=== PATIENT | male | born 1955 | race Caucasian/White ===

== ENCOUNTER → 2019-12-27 | Outpatient (CLI) | payer MEDICARE ==
[~2019-12-27] MED LIST: HYDROCORTISONE30 G3 TP
[2019-12-27 16:34] LABS: COLLECTION METHOD CATHETER
[2019-12-27 16:46] LABS: BUDDING YEAST Present /hpf; PH 6 (5-8); SQUAMOUS EPITHELIAL 0-2 /hpf; URINE APPEARANCE Cloudy; URINE BACTERIA Rare /hpf; URINE BILIRUBIN Negative (NEGATIVE); URINE BLOOD 1+ (NEGATIVE); URINE COLOR Yellow; URINE GLUCOSE Negative (NEGATIVE); URINE KETONE Negative (NEGATIVE); URINE LEUKOCYTE ESTERASE 2+ (NEGATIVE); URINE NITRATE Positive (NEGATIVE); URINE PROTEIN(semi-quant) Negative (NEGATIVE); URINE UROBILINOGEN Negative (NEGATIVE)
== END ==
LOC: ZCOL.LAB 16:23
PROVIDERS: Family Medicine
DX: Z01.89 Encounter for other specified special examinations (principal)

== ENCOUNTER → 2020-01-09 | Outpatient (CLI) | payer MEDICARE ==
[2020-01-09 19:12] LABS: MUCOUS Present /lpf; PH 5 (5-8); SQUAMOUS EPITHELIAL None Seen /hpf; URINE APPEARANCE Turbid; URINE BACTERIA Moderate /hpf; URINE BILIRUBIN Negative (NEGATIVE); URINE BLOOD 3+ (NEGATIVE); URINE COLOR Amber; URINE GLUCOSE Negative (NEGATIVE); URINE KETONE Trace (NEGATIVE); URINE LEUKOCYTE ESTERASE 2+ (NEGATIVE); URINE NITRATE Negative (NEGATIVE); URINE PROTEIN(semi-quant) 2+ (NEGATIVE); URINE RBC >50 /hpf; URINE UROBILINOGEN Negative (NEGATIVE); URINE WBC >50 /hpf
[2020-01-09 19:38] LABS: COLLECTION METHOD CATHETER
== END ==
LOC: ZLAB.STJ 16:53
PROVIDERS: Family Medicine
DX: N39.0 Urinary tract infection, site not specified (principal)

== ENCOUNTER → 2020-01-28 | Outpatient (CLI) | payer MEDICARE ==
[2020-01-28 19:14] LABS: COLLECTION METHOD CLEAN CATCH
[2020-01-28 20:37] LABS: AMORPHOUS CRYSTAL Present /uL; MUCOUS Present /lpf; PH 6 (5-8); SQUAMOUS EPITHELIAL 0-2 /hpf; URINE APPEARANCE Cloudy; URINE BACTERIA Moderate /hpf; URINE BILIRUBIN Negative (NEGATIVE); URINE BLOOD Negative (NEGATIVE); URINE COLOR Yellow; URINE GLUCOSE Negative (NEGATIVE); URINE KETONE Negative (NEGATIVE); URINE LEUKOCYTE ESTERASE 3+ (NEGATIVE); URINE NITRATE Positive (NEGATIVE); URINE PROTEIN(semi-quant) Negative (NEGATIVE); URINE UROBILINOGEN Negative (NEGATIVE); URINE WBC 20-50 /hpf
== END ==
LOC: ZCOL.LAB 13:59
PROVIDERS: Family Medicine
DX: N39.0 Urinary tract infection, site not specified (principal)

== ENCOUNTER → 2020-02-03 | Outpatient (CLI) | payer MEDICARE ==
[2020-02-03 14:15] LABS: COLLECTION METHOD CATHETER
[2020-02-03 14:22] LABS: MUCOUS Present /lpf; PH 5 (5-8); SQUAMOUS EPITHELIAL None Seen /hpf; URINE APPEARANCE Hazy; URINE BACTERIA None Seen /hpf; URINE BILIRUBIN Negative (NEGATIVE); URINE BLOOD 1+ (NEGATIVE); URINE COLOR Yellow; URINE GLUCOSE Negative (NEGATIVE); URINE KETONE Negative (NEGATIVE); URINE LEUKOCYTE ESTERASE 3+ (NEGATIVE); URINE NITRATE Positive (NEGATIVE); URINE PROTEIN(semi-quant) Negative (NEGATIVE); URINE UROBILINOGEN Negative (NEGATIVE)
== END ==
LOC: ZLAB.STJ 13:49
PROVIDERS: Family Medicine
DX: N39.0 Urinary tract infection, site not specified (principal)

== ENCOUNTER → 2020-03-13 | Outpatient (CLI) | payer MEDICARE ==
[~2020-03-13] MED LIST changes: +ATROVENT INHALE14 GM IH; +BACTROBAN15 GM TOP; +DEBROX OT; +ELIQUIS 5MG PO; +GAS RELIEF 8080 MG PO; +LIORESAL 1010 MG/TAB; +MIRALAX PA17 GM/Dose PO; +ONE-A-DAY ESSE1 EACH PO; +PACERONE100 MG PO; +PRAVACHOL 40MG40 MG PO; +SENNA-LAX8.6 MG PO; +TYLENOL 325MG325 MG PO; +ULTRAM 50MG TAB50 MG PO; +VITAMIN D31000 I1 PO; +[UNRECOGNIZED DRUG - OTHER]
[2020-03-13 23:44] LABS: COLLECTION METHOD CLEAN CATCH
[2020-03-14 00:01] LABS: PH 5 (5-8); SQUAMOUS EPITHELIAL None Seen /hpf; URINE APPEARANCE Hazy; URINE BACTERIA None Seen /hpf; URINE BILIRUBIN Negative (NEGATIVE); URINE BLOOD 1+ (NEGATIVE); URINE COLOR Amber; URINE GLUCOSE Negative (NEGATIVE); URINE KETONE Negative (NEGATIVE); URINE LEUKOCYTE ESTERASE Trace (NEGATIVE); URINE NITRATE Negative (NEGATIVE); URINE PROTEIN(semi-quant) 2+ (NEGATIVE); URINE UROBILINOGEN Negative (NEGATIVE)
== END ==
LOC: ZCOL.LAB 23:02
PROVIDERS: Family Medicine
DX: N39.0 Urinary tract infection, site not specified (principal)

== ENCOUNTER 2020-03-14 15:23 | Inpatient (IN) | payer MEDICARE, OTHER ==
[~2020-03-14] VITALS: Ht 182.9 cm; Wt 98.5 kg
[2020-03-14] VITALS (131 sets, daily range): BP systolic 90–117; BP diastolic 49–74; PULSE 66–104; TEMP 98.1–100.9; O2SAT 82–99
[~2020-03-14 15:23] MED LIST changes: -ATROVENT INHALE14 GM IH; -BACTROBAN15 GM TOP; -DEBROX OT; -ELIQUIS 5MG PO; -GAS RELIEF 8080 MG PO; -LIORESAL 1010 MG/TAB; -MIRALAX PA17 GM/Dose PO; -ONE-A-DAY ESSE1 EACH PO; -PACERONE100 MG PO; -PRAVACHOL 40MG40 MG PO; -SENNA-LAX8.6 MG PO; -TYLENOL 325MG325 MG PO; -ULTRAM 50MG TAB50 MG PO; -VITAMIN D31000 I1 PO; -[UNRECOGNIZED DRUG - OTHER]
[2020-03-14 15:49] LABS: COLLECTION METHOD CATHETER
[2020-03-14 15:53] LABS: BASO % 0.2 % (0.0-2.0); GRAN # 3.9 (1.4-6.5); GRAN % 59.7 % (42.2-75.2); HEMATOCRIT 39.3 % (42.0-52.0); HEMOGLOBIN 13.3 g/dl (13.5-18.0); LYMPH # 2.3 (1.2-3.4); LYMPH % 34.9 % (20.0-51.0); MEAN CELL VOLUME 93 fl (80.0-100.0); MEAN CORPUSCULAR HEMOGLOBIN 31 pg (27.0-31.0); MEAN CORPUSCULAR HGB CONC 34 g/dl (33.0-37.0); MEAN PLATELET VOLUME 11.9 fl (7.4-10.4); MONO # 0.3 (0.1-0.6); MONO % 4.6 % (1.7-9.3); PLATELET COUNT 227 K/mm3 (130-400); RED BLOOD COUNT 4.24 M/mm3 (4.20-5.60); REDCELL DISTRIBUTION WIDTH-CV 14.5 % (11.5-14.5)
[2020-03-14 15:59] LABS: MUCOUS Present /lpf; PH 5 (5-8); SQUAMOUS EPITHELIAL None Seen /hpf; URINE APPEARANCE Cloudy; URINE BACTERIA Rare /hpf; URINE BILIRUBIN Negative (NEGATIVE); URINE BLOOD 1+ (NEGATIVE); URINE COLOR Amber; URINE GLUCOSE Negative (NEGATIVE); URINE KETONE Negative (NEGATIVE); URINE LEUKOCYTE ESTERASE 3+ (NEGATIVE); URINE NITRATE Negative (NEGATIVE); URINE PROTEIN(semi-quant) 2+ (NEGATIVE); URINE UROBILINOGEN Negative (NEGATIVE)
[2020-03-14 16:01] LABS: ALBUMIN 3.5 gm/dL (3.5-5.0); BILIRUBIN,TOTAL 0.5 mg/dL (0.0-1.0); CALCIUM 7.9 mg/dL (8.4-10.2); CREATININE, serum 1.03 (0.66-1.25); POTASSIUM 3.2 mmol/L (3.4-5.0); TOTAL PROTEIN 6.7 gm/dL (6.4-8.2)
[2020-03-14 16:11] LABS: INR 1.5 (0.8-3.0)
[2020-03-14 16:14] LABS: TROPONIN-I 0.03 ng/mL (0.000-0.035)
[2020-03-14] MEDS ORDERED: VITAMIN D31000 I1 PO (16:24)
[2020-03-14] MEDS ORDERED: SENNA-LAX8.6 MG PO (16:26)
[2020-03-14] MEDS ORDERED: MIRALAX PA17 GM/Dose PO (16:27)
[2020-03-14] MEDS ORDERED: GAS RELIEF 8080 MG PO (16:28)
[2020-03-14] MEDS ORDERED: TYLENOL 325MG325 MG PO (16:28)
[2020-03-14] MEDS ORDERED: ONE-A-DAY ESSE1 EACH PO (16:29)
[2020-03-14] MEDS ORDERED: PACERONE100 MG PO (16:30)
[2020-03-14] MEDS ORDERED: PRAVACHOL 40MG40 MG PO (16:31)
[2020-03-14] MEDS ORDERED: ELIQUIS 5MG PO (16:31)
[2020-03-14] MEDS ORDERED: LIORESAL 1010 MG/TAB (16:32)
[2020-03-14] MEDS ORDERED: ULTRAM 50MG TAB50 MG PO (16:33)
[2020-03-14] MEDS ORDERED: BACTROBAN15 GM TOP (16:45)
[2020-03-14] MEDS ORDERED: DEBROX OT (16:46)
[2020-03-14] MEDS ORDERED: [UNRECOGNIZED DRUG - OTHER] (16:47)
[2020-03-14] MEDS ORDERED: ATROVENT INHALE14 GM IH (16:48)
[2020-03-14 18:11] LABS: MAGNESIUM 2.3 mg/dL (1.6-2.3)
[2020-03-14 18:16] LABS: ARTERIAL BLD GAS O2 SATURATION 93.4 % (92-100); ARTERIAL BLD GAS TCO2 CT 20.9; ARTERIAL BLOOD GAS BASE EXCESS -3.5 (-2-2); ARTERIAL BLOOD GAS PCO2 31.7 mmHg (35-45); ARTERIAL BLOOD GAS PO2 67.1 mmHg (80-100); ARTERIAL BLOOD GAS pH 7.42 (7.35-7.45)
[2020-03-14 18:23] LABS: C-REACTIVE PROTEIN 15.6 mg/dL (0.0-0.9)
--- NOTE | 2020-03-14 19:11 | NUR ---
PT in ICU at 1818. PT is awake and alert. PT is able to answer orientation questions appropriately. PT is moved from ED bed to ICU bed with assitance of 4 via slide board without incident. PT is hooked up to monitor with call light in hand. Report given to ANISHA Rausch
--- NOTE | 2020-03-14 22:51 | NUR ---
PATIENT DISCHARGED TO [facility]ICLE TO TRANSFER TO [facility] 2230. ALL PAPERWORK IN ORDER AND HANDED TO [facility], PATIENT IN LEONARDO GOWN WITH SLIPPERS AND TWO BLANKETS
[2020-03-15] VITALS (747 sets, daily range): BP systolic 89–136; BP diastolic 50–96; PULSE 58–67; TEMP 98–98.8; O2SAT 76–99
[2020-03-15 05:49] LABS: GRAN # 3.8 (1.4-6.5); GRAN % 84.2 % (42.2-75.2); HEMATOCRIT 38.3 % (42.0-52.0); LYMPH # 0.5 (1.2-3.4); LYMPH % 10.3 % (20.0-51.0); MEAN CELL VOLUME 92 fl (80.0-100.0); MEAN CORPUSCULAR HEMOGLOBIN 31 pg (27.0-31.0); MEAN CORPUSCULAR HGB CONC 34 g/dl (33.0-37.0); MEAN PLATELET VOLUME 12.7 fl (7.4-10.4); MONO # 0.2 (0.1-0.6); MONO % 5.1 % (1.7-9.3); PLATELET COUNT 155 K/mm3 (130-400); RED BLOOD COUNT 4.15 M/mm3 (4.20-5.60); REDCELL DISTRIBUTION WIDTH-CV 14.7 % (11.5-14.5)
[2020-03-15 06:01] LABS: ALBUMIN 3.4 gm/dL (3.5-5.0); BILIRUBIN,TOTAL 0.5 mg/dL (0.0-1.0); CALCIUM 7.8 mg/dL (8.4-10.2); CREATININE, serum 0.7 (0.66-1.25); MAGNESIUM 2.3 mg/dL (1.6-2.3); POTASSIUM 4.8 mmol/L (3.4-5.0); TOTAL PROTEIN 6.8 gm/dL (6.4-8.2)
[2020-03-15 06:08] LABS: ARTERIAL BLD GAS O2 SATURATION 90.6 % (92-100); ARTERIAL BLD GAS TCO2 CT 20.2; ARTERIAL BLOOD GAS BASE EXCESS -4.3 (-2-2); ARTERIAL BLOOD GAS HCO3 19.3 meq/L (22-26); ARTERIAL BLOOD GAS PCO2 31.1 mmHg (35-45); ARTERIAL BLOOD GAS PO2 59.6 mmHg (80-100); ARTERIAL BLOOD GAS pH 7.41 (7.35-7.45)
--- NOTE | 2020-03-15 07:30 | NUR ---
RECEIVED REPORT FROM NAISHA OROZCO. PT RESTING EASILY ON AIRVO. CALL LIGHT WITHIN REACH. VSS. FC PATENT AND DRAINING TO GRAVITY. SEE GTT FLOWSHEET. NOTED POX 89-92% AND RR 25-30, WILL CONTINUE TO MONITOR CLOSELY.
--- NOTE | 2020-03-15 08:30 | NUR ---
DR AUSTIN AT BEDSIDE FOR ASSESSMENT. DR AUSTIN DISCUSSES INTUBATION AND TREATMENT POC, PT STATES TO TALK TO TIMOTEO WHO HELPS WITH DECISIONS BECAUSE HE IS THINKING HE WANTS TO BE A DNR/DNI. DR AUSTIN AND RN SPOKE WITH TIMOTEO AND PT ABOUT POC, PT STATES "I AM TIRED OF HURTING AND WANT TO STOP." DISCUSS POSSIBLE COMFORT CARE MEASURES. BOTH TIMOTEO AND PT UNSURE OF HOW FAR OF COMFORT CARE TO MAKE PT AT THIS TIME BUT DO NOT WANT HIM HURTING ANYMORE. PT UNSURE HE WANTS PICC LINE PLACEMENT AT THIS TIME R/T POSSIBLITY OF STOPPING ALL TREATMENTS. WILL CONTINUE TO TALK TO PT AND TIMOTEO ABOUT TREATMENT PLAN. DR AUSTIN AWARE OF PT'S WISHES AT THIS TIME.
--- NOTE | 2020-03-15 10:05 | NUR ---
The patient is positive for COVID. CAITLIN staffed with the patient's RN. Dahlia Christianson is listed as the patient's next of kin/person to notify in EMR. The patient's RN had Dahlia on the phone. Dahlia states that she is the patient's DPOA-HC and that she has the documents. CAITLIN then contacted Dahlia to complete intake. The patient resides at [facility]. His PCP is Dr. Burak Dozier. Dahlia reports that the patient is not and that he has two children, but that they are disowned. The patient has not seen them in years. Dahlia states that she is the patient's DPOA-HC and that she could email the documents to this SW. CAITLIN provided her with this CAITLIN's email. CAITLIN received the documents. The patient's DPOA-HC is Dahlia. CAITLIN notified the patient's RN and placed the documents in the patient's chart. Dahlia reports that the plan is for the patient to return back to [facility] upon discharge. CAITLIN contacted Wilmer at [facility] and will fax updates to [facility].
--- NOTE | 2020-03-15 11:13 | NUR ---
DR BALES AT BEDSIDE AND MADE AWARE OF EVENTS ABOUT POSSIBLE FULL COMFORT MEASURES DISCUSSION WITH PT AND TIMOTEO. TIMOTEO BROUGHT BACK ON THE PHONE WITH PHYSICIAN AND PT AND DISCUSSING AT BEDSIDE ABOUT POC AND CURRENT HEALTH STATUS. BOTH TIMOTEO AND PT AGREE TO DNR/DNI BUT WOULD LIKE TREATMENT TO CONTINUE AT THIS TIME. PICC LINE NURSE MADE AWARE. NEW ORDERS RECEIVED. DR BALES AWARE THAT REMDESEVIR HAS NOT BEEN GIVEN WHILE HAVING ONLY ONE IV ACCESS AND AWAITNG DECISIONS FOR POC. WILL ADMINISTER SOON PICC LINE IS PLACED.
--- NOTE | 2020-03-15 22:00 | NUR ---
Patient in resting in bed; dyspneic at rest. Reports wanting to reposition to other side as his breathing is more difficult when on the right. Patient desaturated to low 80's with minimal exertion. Assisted to left side. After several minutes oxygen back up to low 90's. Reported feeling "more comfortable". Nirmala-care provided. Patient has a pressure ulcer on the coccyx. Uler is approximately 1/2 dollar sized. Wound bed has dark eschar present and the skin is reddened around the wound. Wound culture obtained and area cleansed and fresh bandage applied.
--- NOTE | 2020-03-15 23:15 | NUR ---
Notified by telemetry that HR is running 40's to 50's in SR. Amiodarone placed on standby. Hospitalist notfied and requested this nurse notify Ethel for possible further orders. Ethel physician notified and no new orders at this time.
[2020-03-16] VITALS (736 sets, daily range): BP systolic 103–141; BP diastolic 54–88; PULSE 48–76; TEMP 96.7–98.1; O2SAT 51–98
--- NOTE | 2020-03-16 00:15 | NUR ---
Patient refused offer to repostion due to breathing "better" on his left side. Will continue to monitor.
[2020-03-16 05:34] LABS: BASO % 0.1 % (0.0-2.0); GRAN # 8.1 (1.4-6.5); GRAN % 88.1 % (42.2-75.2); HEMATOCRIT 37.7 % (42.0-52.0); HEMOGLOBIN 12.7 g/dl (13.5-18.0); LYMPH # 0.6 (1.2-3.4); LYMPH % 6.8 % (20.0-51.0); MEAN CELL VOLUME 95 fl (80.0-100.0); MEAN CORPUSCULAR HEMOGLOBIN 32 pg (27.0-31.0); MEAN CORPUSCULAR HGB CONC 34 g/dl (33.0-37.0); MEAN PLATELET VOLUME 11.7 fl (7.4-10.4); MONO # 0.4 (0.1-0.6); MONO % 4.1 % (1.7-9.3); PLATELET COUNT 209 K/mm3 (130-400); RED BLOOD COUNT 3.98 M/mm3 (4.20-5.60); REDCELL DISTRIBUTION WIDTH-CV 14.8 % (11.5-14.5)
[2020-03-16 05:45] LABS: ALBUMIN 3.2 gm/dL (3.5-5.0); BILIRUBIN,TOTAL 0.3 mg/dL (0.0-1.0); CREATININE, serum 0.69 (0.66-1.25); POTASSIUM 4.3 mmol/L (3.4-5.0); TOTAL PROTEIN 6.2 gm/dL (6.4-8.2)
[2020-03-16 06:04] LABS: MAGNESIUM 2.2 mg/dL (1.6-2.3)
--- NOTE | 2020-03-16 07:50 | NUR ---
Pt declines having ABG done this am. Pt understands that this blood test would show his breathing status and again reinforces that he has no wishes to be intubated if his status were dire.
--- NOTE | 2020-03-16 20:15 | NUR ---
Patient alert and oriented. Dyspneic at rest on max settings of AIRVO. Continues to uphold DNR/DNI order. Patient refused offer to reposition and reports cannot tolerate being on back or right side. Overhead fan on for comfort. Call light left within reach.
--- NOTE | 2020-03-16 22:00 | NUR ---
Patient becomes very anxious and panics when attempting to reposition off of the left side. Reports not tolerating any other side due to difficulty breathing. Hospitalist notified and requsted medication to assist with air hunger. Patient is a DNR/DNI and is at the max level of fi02 for Air-Vo. Hosptiatlist requested to attempt BIPAP. One time dose of ativan ordered. Notified RT and discussed plan with patient.
[2020-03-17] VITALS (379 sets, daily range): BP systolic 130; BP diastolic 96; PULSE 57; TEMP 97.9; O2SAT 46–100
--- NOTE | 2020-03-17 01:06 | NUR ---
RN CALLED FOR MORPHINE ORDER FOR PTS AIR HUNGER. RICK WILSON BENNOIT ORDERED BIPAP WELL TO TRY TONIGHT TOLERATED BY PATIENT. PT IS ON SETTINGS OF 10/5, R 14 AND FI02 OF 100% WHICH THE FI02 IS WHAT PT WAS ON FOR THE AIRVO. PT SEEMS TO BE TOLERATING BIPAP FOR NOW. NO DISTRESS WAS NOTED AND PATIENT WAS RESTING COMFORTABLY. WILL CONTINUE TO ASSESS AND MONITOR PATIENT THROUGHOUT THE NIGHT.
--- NOTE | 2020-03-17 03:50 | NUR ---
Hospitalist notifed that HR dropping to low 40's at times. Ok to place lower HR limit to 40.
[2020-03-17 04:56] LABS: ARTERIAL BLD GAS O2 SATURATION 73.4 % (92-100); ARTERIAL BLD GAS TCO2 CT 25.7; ARTERIAL BLOOD GAS BASE EXCESS -0.9 (-2-2); ARTERIAL BLOOD GAS HCO3 24.4 meq/L (22-26); ARTERIAL BLOOD GAS PCO2 42.6 mmHg (35-45); ARTERIAL BLOOD GAS pH 7.38 (7.35-7.45)
[2020-03-17 04:57] LABS: ARTERIAL BLOOD GAS PO2 38.1 mmHg (80-100)
--- NOTE | 2020-03-17 05:00 | NUR ---
RT at bedside to obtain ABG. Switched from BIPAP to AIRVO. RT notified nurse that patient appeared very "tired" with increased work of breathing. This nurse entered patient's room and patient did appear noticably more tired with severe dyspnea at rest. This nurse asked patient if he would like this nurse to call his DPOA; patient agreed. Hospitalist notified; received order for ativan at this time.
--- NOTE | 2020-03-17 05:30 | NUR ---
DPOA notified of patient's declining respiratory status. Patient drowsy and having severe respiratory distress. DPOA stated she would like to transition to keeping patient "comfortable" . Wants to respect patients wishes to remain a DNR/DNI. This nurse asked if DPOA would wish to transition patient to comfort care and DPOA stated "yes". Hospitalist notified.
--- NOTE | 2020-03-17 05:46 | NUR ---
Hospitalist at bedside to see patient.
--- NOTE | 2020-03-17 09:50 | NUR ---
Dahlia, patients next of kin, is here to be with patient, along with her . We properly gowned them up to enter the room and gave detailed instuctions on hand hygiene and showering and washing their clothes when they return home. RN entered the room with them to administer morphine and ativan to make patient comfortable, and switched his airvo to 2L NC.
--- NOTE | 2020-03-17 10:11 | NUR ---
Time of confirmed with ANISHA Orozco.
--- NOTE | 2020-03-17 10:28 | NUR ---
notified of patients time of .
--- NOTE | 2020-03-17 11:40 | NUR ---
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
--- NOTE | 2020-03-17 12:01 | NUR ---
The patient . [facility] was notified and the patient is not a candidate. The patient's DPOA-HC, Dahlia, chose [facility] for the home. 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 CAITLIN updated Wilmer at [facility]. No additional needs at this time.
== END 2020-03-17 12:37 | disposition expired | DRG 177 ==
LOC: COL.ER 15:23 → ICU 16:33
PROVIDERS: Emergency Medicine; Internal Medicine Pulmonary Disease; ADMIT Hospitalist
PROC: XW033E5 Introduction of Remdesivir Anti-infective into Peripheral Vein, Percutaneous Approach, New Technology Group 5 (ICD-10-PCS; principal; 2020-03-14)
PROC: 02HV33Z Insertion of Infusion Device into Superior Vena Cava, Percutaneous Approach (ICD-10-PCS; 2020-03-14)
PROC: XW13325 Transfusion of Convalescent Plasma (Nonautologous) into Peripheral Vein, Percutaneous Approach, New Technology Group 5 (ICD-10-PCS; 2020-03-16)
DX: U07.1 COVID-19 (principal); J12.89 Other viral pneumonia; J96.01 Acute respiratory failure with hypoxia; G82.50 Quadriplegia, unspecified; N39.0 Urinary tract infection, site not specified; E87.2 Acidosis; I48.91 Unspecified atrial fibrillation; D64.9 Anemia, unspecified; E87.6 Hypokalemia; L89.152 Pressure ulcer of sacral region, stage 2; K59.00 Constipation, unspecified; Z79.01 Long term (current) use of anticoagulants; Z86.718 Personal history of other venous thrombosis and embolism; Z87.891 Personal history of nicotine dependence
CPT/HCPCS: 99223-AI; 99233-AI; 99239; C1751; J0282; J1100; J1940; J1956; J2060; J2270; J2543; J3480; J7030; J7050; J7060; J7120